=== PATIENT | female | born 2005 | race Caucasian/White ===

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

== ENCOUNTER 2024-01-04 14:14 | Inpatient (IN) ==
[2024-01-04 16:06] LABS: Urine Appearance Clear; Urine Bilirubin Negative (Negative); Urine Blood Negative (Negative); Urine Color Yellow; Urine Glucose Negative (Negative); Urine Ketones Negative (Negative); Urine Nitrite Negative (Negative); Urine Protein Negative (Negative); Urine Specific Gravity 1.023 (1.002-1.030); Urine Urobilinogen Negative (Negative)
[2024-01-04 16:16] LABS: ABS Eosinophils 0.1 10^3/uL (0.0-0.5); ABS Lymphocytes 1.6 10^3/uL (1.0-4.8); ABS Monocytes 0.5 10^3/uL (0.0-0.9); ABS Neutrophils 2.5 10^3/uL (1.5-7.6); ABS Nucleated RBC 0.01 10^3/ul; Eosinophil % 1.9 %; Hematocrit 36.9 % (35-45); Hemoglobin 12.6 g/dL (11.5-14.3); Lymphocyte % 33.5 %; Mean Corpuscular Volume 88.2 fL (80-97); Mean Platelet Volume 7.9 fL (7.5-11.2); Nucleated Red Blood Cells % 0.1 %/100WBC (0.0-0.8); Platelet Count 375 10^3/uL (150-450); Red Blood Count 4.18 10^6/uL (3.63-4.92); Red Cell Distribution Width 13.9 % (12-17); White Blood Count 4.7 10^3/uL (3.8-11.8)
[2024-01-04 16:32] LABS: Urine Benzodiazepine Screen None Detected (None Detect); Urine Cannabinoids Screen None Detected (None Detect); Urine Opiates Screen None Detected (None Detect)
[2024-01-04 17:03] LABS: ALT 17 U/L (7-52); AST 15 U/L (13-39); Acetaminophen < 15 mcg/mL; Albumin 4.8 g/dL (3.2-5.2); Alcohol, S < 13 mg/dL (<13); Alkaline Phosphatase 55 U/L (35-149); Anion Gap 6 mmol/L (2-16); Blood Urea Nitrogen 9 mg/dL (6-24); CO2 Carbon Dioxide 26 mmol/L (22-32); Calcium 9.9 mg/dL (8.6-10.3); Chloride 105 mmol/L (101-111); Creatinine, Serum 0.77 mg/dL (0.51-0.95); Globulin 2.4 g/dL (2-4); Glucose 78 mg/dL (70-100); Lithium < 0.16 mmol/L (0.6-1.2); Potassium 4.1 mmol/L (3.5-5.0); Salicylate < 2.50 mg/dL (<30); Sodium 137 mmol/L (135-145); Total Bilirubin 0.4 mg/dL (0.2-1.0); Total Protein 7.2 g/dL (6.4-8.9); eGFR CKD-EPI 113.2 (>60)
[2024-01-04 17:15] LABS: TSH Ultra Thyroid Stim Horm 0.95 mcIU/mL (0.34-5.60)
[2024-01-04] MEDS ORDERED: Al Hydrox/Mg Hydrox/Simet LIQ 30 ML UDC PO PRN (21:36)
[2024-01-04 21:45] LABS: HCG Pregnancy < 0.60 mIU/mL
[2024-01-05] MEDS: Vitamin THERAPEUTIC TAB PO SCH (09:15)
[2024-01-06 08:30] LABS: HDL Cholesterol 49.9 mg/dL
[2024-01-07 08:36] VITALS: BP 116/72
== END 2024-01-07 13:30 | disposition home or self-care (01) | DRG 885 ==
LOC: ED 14:14 → EDHOLD 21:10 → BSU 21:38
PROVIDERS: ADMIT Psychiatry & Neurology Addiction Psychiatry; ATTEND Psychiatry & Neurology Psychiatry

== ENCOUNTER 2024-07-25 18:19 | Inpatient (IN) ==
[2024-07-25 19:14] LABS: Urine Appearance Turbid; Urine Bilirubin Negative (Negative); Urine Blood Negative (Negative); Urine Color Light-Yellow; Urine Glucose Negative (Negative); Urine Ketones Negative (Negative); Urine Nitrite Negative (Negative); Urine Protein Trace (Negative); Urine Specific Gravity 1.017 (1.002-1.030); Urine Urobilinogen Negative (Negative); Urine pH 6.5 (5.0-8.0)
[2024-07-25 19:38] LABS: Urine Benzodiazepine Screen None Detected (None Detect); Urine Cannabinoids Screen Presumptive Positive (None Detect); Urine Opiates Screen None Detected (None Detect)
[2024-07-26] MEDS ORDERED: Al Hydrox/Mg Hydrox/Simet LIQ 30 ML UDC PO PRN (00:17)
[2024-07-26] MEDS: Vitamin THERAPEUTIC TAB PO SCH (08:23)
[2024-07-26 08:41] LABS: HDL Cholesterol 48.4 mg/dL
[2024-07-26] MEDS: Lactase Enzyme (NF) 3,000 UNIT TAB PO SCH (17:01)
[2024-07-28 10:15] VITALS: BP 107/72
== END 2024-07-28 13:12 | disposition home or self-care (01) | DRG 885 ==
LOC: ED 18:19 → EDHOLD 22:13 → BSU 23:53
PROVIDERS: ADMIT Psychiatry & Neurology Psychiatry; ATTEND Psychiatry & Neurology Psychiatry

== ENCOUNTER 2024-09-17 12:16 | Inpatient (IN) ==
[2024-09-17 13:08] LABS: Urine Appearance Clear; Urine Bilirubin Negative (Negative); Urine Blood Trace (Negative); Urine Color Colorless; Urine Glucose Negative (Negative); Urine Ketones Negative (Negative); Urine Nitrite Negative (Negative); Urine Protein Negative (Negative); Urine Specific Gravity 1.012 (1.002-1.030); Urine Urobilinogen Negative (Negative); Urine pH 6.5 (5.0-8.0)
[2024-09-17 13:10] LABS: ABS Eosinophils 0.4 10^3/uL (0.0-0.5); ABS Lymphocytes 1.2 10^3/uL (1.0-4.8); ABS Monocytes 0.5 10^3/uL (0.0-0.9); ABS Nucleated RBC 0.01 10^3/ul; Hematocrit 35.1 % (35-45); Hemoglobin 11.7 g/dL (11.5-14.3); Lymphocyte % 29.3 %; Mean Corpuscular Hgb Conc 33.5 g/dL (31-36); Mean Corpuscular Volume 89.6 fL (80-97); Mean Platelet Volume 7.7 fL (7.5-11.2); Nucleated Red Blood Cells % 0.2 %/100WBC (0.0-0.8); Platelet Count 300 10^3/uL (150-450); Red Blood Count 3.92 10^6/uL (3.63-4.92); Red Cell Distribution Width 14.2 % (12-17); White Blood Count 4.2 10^3/uL (3.8-11.8)
[2024-09-17 13:31] LABS: Urine Benzodiazepine Screen None Detected (None Detect); Urine Cannabinoids Screen Presumptive Positive (None Detect); Urine Opiates Screen None Detected (None Detect)
[2024-09-17 13:49] LABS: ALT 18 U/L (7-52); AST 16 U/L (13-39); Acetaminophen < 15 mcg/mL; Albumin 4.7 g/dL (3.2-5.2); Albumin/Globulin Ratio 2.4 (1-3); Alcohol, S < 13 mg/dL (<13); Alkaline Phosphatase 55 U/L (35-149); Anion Gap 3 mmol/L (2-16); Blood Urea Nitrogen 10 mg/dL (6-24); CO2 Carbon Dioxide 28 mmol/L (22-32); Calcium 9.5 mg/dL (8.6-10.3); Chloride 108 mmol/L (101-111); Glucose 96 mg/dL (70-100); Potassium 4.1 mmol/L (3.5-5.0); Salicylate < 2.50 mg/dL (<30); Sodium 139 mmol/L (135-145); Total Bilirubin 0.3 mg/dL (0.2-1.0); Total Protein 6.7 g/dL (6.4-8.9); eGFR CKD-EPI 107.4 (>60)
[2024-09-17 14:02] LABS: TSH Ultra Thyroid Stim Horm 1.47 mcIU/mL (0.34-5.60)
[2024-09-17] MEDS ORDERED: Al Hydrox/Mg Hydrox/Simet LIQ 30 ML UDC PO PRN (14:14)
[2024-09-18 08:11] LABS: Cholesterol 145 mg/dL; HDL Cholesterol 49.1 mg/dL; LDL Cholesterol 81 mg/dL; Triglycerides 75 mg/dL
[2024-09-18 08:55] LABS: HCG Pregnancy < 0.60 mIU/mL
[2024-09-18 11:39] LABS: Lithium 0.64 mmol/L (0.6-1.2)
[2024-09-18] MEDS: COVID VAC 24-25 (12+) (Moderna) Syringe 0.5 mL IM ONE (13:59)
[2024-09-18] MEDS: Lithium Carbonate ER 450mg TAB PO SCH (19:57)
[2024-09-22 11:23] VITALS: BP 127/79
== END 2024-09-22 15:39 | disposition home or self-care (01) | DRG 885 ==
LOC: ED 12:16 → EDHOLD 14:14 → BSU 15:21
PROVIDERS: ADMIT Psychiatry & Neurology Psychiatry; ATTEND Psychiatry & Neurology Psychiatry